=== PATIENT | female | born 1955 | race Caucasian/White ===

== ENCOUNTER 2017-11-19 13:10 | Outpatient (CLI) | payer OTHER ==
--- NOTE | 2017-11-20 10:50 | DEXA Report ---
DEXA SCAN: 11/19/2017 CLINICAL INDICATION: Osteoporosis. TECHNIQUE: Dual energy x-ray absorptiometry (DXA) was performed on a [email or web address] system. Regions measured are the AP spine, femoral neck, and, if needed, forearm. COMPARISON: 06/09/2016. In accordance with the International Society for Clinical Densitometry (ISCD) guidelines, data from previous exams may be reanalyzed using current recommendations and techniques. This is done to allow a more accurate basis for comparison with the current study. FINDINGS Data for the lumbar spine is as follows: REGION BMD (g/cm/cm) T-SCORE Z-SCORE L1 0.922 -1.7 -0.6 L2 0.840 -3.0 -1.8 L3 1.067 -1.1 0.0 L4 1.121 -0.7 0.5 L1-L4 1.001 -1.5 -0.3 NOTE: All evaluable vertebrae are used for classification. Data for the hip is as follows: REGION BMD (g/cm/cm) T-SCORE Z-SCORE Neck 0.730 -2.2 -1.0 TOTAL 0.708 -2.4 -1.5 NOTE: The femoral neck or total proximal femur, whichever is lowest, is used for classification. DEXA RESULTS SUMMARY: Spine SCAN DATE AGE BMD T-SCORE BMD CHANGE VS BASELINE BMD CHANGE VS PREVIOUS 11/19/2017 62.1 1.001 -- 0.041* 4.2* 06/09/2016 60.6 0.981 -- -- -- * Denotes significant change at the 95% confidence level. Denotes dissimilar scan types or analysis methods. DEXA RESULTS SUMMARY: Total hip SCAN DATE AGE BMD T-SCORE BMD CHANGE VS BASELINE BMD CHANGE VS PREVIOUS 11/19/2017 62.1 0.708 -- 0.059* 9.1* 06/09/2016 60.6 0.49 -- -- -- * Denotes significant change at the 95% confidence level. Denotes dissimilar scan types or analysis methods. IMPRESSION 1. WHO CLASSIFICATION BASED ON THE INTERNATIONAL REFERENCE STANDARD IS OSTEOPENIA. FRACTURE RISK IS INCREASED. 2. THERE HAS BEEN STATISTICALLY SIGNIFICANT INTERVAL INCREASE IN BONE MINERAL DENSITY OF THE LEFT HIP AND LUMBAR SPINE FROM 06/09/2016. RECOMMENDATION: Patients with diagnosis of osteoporosis or osteopenia should have regular bone mineral density assessment. For those eligible for Medicare, routine testing is allowed once every 2 years. Testing frequency can be increased for patients who have rapidly progressing disease or for those who are receiving medical therapy to restore bone mass. COMMENT World Health Organization (WHO) definitions for osteoporosis and osteopenia: NORMAL BMD: T-score at 1.0 or higher, fracture risk is low. OSTEOPENIA BMD: T-score between 1.0 and -2.5, fracture risk is increased. OSTEOPOROSIS BMD: T-score at 2.5 or lower, fracture risk high. National Osteoporosis Foundation recommends: 1. Obtain adequate dietary calcium (at least 1200 mg per day) and vitamin D ( 400-800 international units per day). 2. Participate, as appropriate, in regular weightbearing and muscle- strengthening exercise. 3. Avoid tobacco use and reduce alcohol and caffeine intake. 4. For more detailed information see the website at www.NOF.org. TD: 11/19/2017 18:52 DIONTE
== END 2017-11-19 13:11 | disposition home or self-care (01) ==
LOC: DI 13:10
PROVIDERS: ATTEND Internal Medicine
DX: M85.88 Other specified disorders of bone density and structure, other site (principal)
CPT/HCPCS: 77080

== ENCOUNTER 2019-08-24 06:10 | Outpatient (CLI) | payer OTHER | END 2019-08-24 06:11 | disposition critical access hospital (66) | LOC: EMS 06:10 | PROVIDERS: ATTEND Surgery | DX: S89.91XA Unspecified injury of right lower leg, initial encounter (principal); W11.XXXA Fall on and from ladder, initial encounter; Y92.009 Unspecified place in unspecified non-institutional (private) residence as the place of occurrence of the external cause | CPT/HCPCS: A0425; A0427 ==

== ENCOUNTER 2019-08-24 06:26 | Emergency (ER) | payer OTHER ==
--- NOTE | 2019-08-24 06:31 | ED Physician Documentation ---
History of Present Illness - Stated complaint Stated Complaint: FALL - Chief complaint Chief Complaint: Trauma Ext - History obtained from History obtained from: Patient (Patient is a very pleasant 63-year-old female who was standing on a ladder on the third step when she slipped and fell and landed on her right knee she reports she is unable to bear weight is complaining of severe right knee pain. She denies any history of surgery to your right lower has been anticoagulated she denies hitting her head or neck. She denies any loss of consciousness.), EMS Review of Systems Constitutional: reports: Reviewed and negative Eyes: reports: Reviewed and negative Ears: reports: Reviewed and negative Nose: reports: Reviewed and negative Throat: reports: Reviewed and negative Cardiac: reports: Reviewed and negative Respiratory: reports: Reviewed and negative GI: reports: Reviewed and negative : reports: Reviewed and negative Skin: reports: Reviewed and negative Musculoskeletal: reports: Extremity pain, Extremity swelling, Joint swelling Neurologic: reports: Reviewed and negative Psychiatric: reports: Reviewed and negative Endocrine: reports: Reviewed and negative Immunocompromised: reports: Reviewed and negative PD PAST MEDICAL HISTORY - Present Medications Home Medications: Ambulatory Orders Medication Instructions Recorded Confirmed Dextroamphetamine/Amphetamine 30 mg PO DAILY 06/07/15 06/07/15 [Adderall 30 mg Tablet] Esomeprazole Magnesium [Nexium] 40 mg PO BID 06/07/15 06/07/15 Levothyroxine Sodium [Synthroid] 137 mcg PO DAILY 06/07/15 06/07/15 Oxybutynin [Ditropan] 20 mg PO TID 06/07/15 06/07/15 Piroxicam 20 mg PO DAILY 06/07/15 06/07/15 Simvastatin [Zocor] 40 mg PO DAILY 06/07/15 06/07/15 Trazodone HCl 125 mg PO DAILY 06/07/15 06/07/15 - Allergies Allergies/Adverse Reactions: Allergies Allergy/AdvReac Type Severity Reaction Status Date / Time No Known Drug Allergies Allergy Verified 06/04/15 13:36 PD ED PE NORMAL - Vitals Vital signs reviewed: Yes - General General: Alert and oriented X 3, No acute distress - HEENT HEENT: PERRL - Neck Neck: Supple, no meningeal sign - Cardiac Cardiac: RRR, No murmur - Respiratory Respiratory: Clear bilaterally - Abdomen Abdomen: Normal bowel sounds, Soft, Non tender, Non distended - Derm Derm: Warm and dry - Extremities Extremities: Other (There is tenderness and swelling over the right knee diffusely. There is no gross deformity her compartments are soft she is neurovascularly intact she has decreased range of motion on passive and active range of motion about the right knee joint cap refills less than 2 seconds skin is warm she is able to move all of her toes and she has palpable DP and PT pulses and a palpable popliteal pulse.) - Neuro Neuro: Alert and oriented X 3 - Psych Psych: Normal mood, Normal affect Results - Vitals Vitals: Vital Signs - 24 hr 08/24/19 06:31 Temperature 37.2 C Heart Rate 75 Respiratory 18 Rate Blood Pressure 154/83 H O2 Saturation 100 Oxygen O2 Source Room air PD MEDICAL DECISION MAKING - ED course Complexity details: other (Patient will be signed out at shift change to Dr. DE LA TORRE. Will accept and assume responsibility of care and disposition of this patient.) Departure - Departure Clinical Impression: Knee injury Qualifiers: Encounter type: initial encounter Laterality: right Qualified Code(s): S89.91XA - Unspecified injury of right lower leg, initial encounter
[2019-08-24] MEDS ORDERED: SODIUM CHLORIDE 0.9% 1,000 ML IV ONE (06:33)
[2019-08-24] MEDS ORDERED: MORPHINE 2 MG/ML CARPUJECT IVP STA ×3 (06:33→13:12)
[2019-08-24 07:08] LABS: BASOPHILS # (AUTO) 0.1 10^3/uL (0.0-0.1); BASOPHILS % (AUTO) 0.4 %; EOSINOPHILS % (AUTO) 0.3 %; LYMPHOCYTES # (AUTO) 1.1 10^3/uL (1.5-3.5); LYMPHOCYTES % (AUTO) 9.2 %; MEAN CORPUSCULAR HEMOGLOBIN 31.5 pg (27.0-31.0); MEAN CORPUSCULAR HGB CONC 34.3 g/dL (32.0-36.0); MEAN CORPUSCULAR VOLUME 91.9 fL (81.0-99.0); MEAN PLATELET VOLUME 9.3 fL (7.9-10.8); MONOCYTES # (AUTO) 0.8 10^3/uL (0.0-1.0); MONOCYTES % (AUTO) 6.7 %; PLT - PLATELET COUNT 238 10^3/uL (130-450); RED BLOOD COUNT 3.81 10^6/uL (4.20-5.40); RED CELL DISTRIBUTION WIDTH 12.2 % (12.0-15.0)
[2019-08-24 07:14] LABS: INR 1.1 (0.8-1.2); PT - PROTHROMBIN TIME 12.5 secs (9.9-12.6)
[2019-08-24 07:21] LABS: CALCIUM 9.4 mg/dL (8.5-10.3); CREATININE 0.8 mg/dL (0.4-1.0); PARTIAL THROMBOPLASTIN TIME 38.9 secs (24.9-33.3)
--- NOTE | 2019-08-24 07:47 | XRAY Report ---
Reason: KNEE PAIN Procedure Date: 08/24/2019 Accession Number: [id number] / [id number] Procedure: XR - Knee 3 View RT CPT Code: Final Report FULL RESULT: EXAM: RIGHT KNEE RADIOGRAPHY EXAM DATE: 08/24/2019 07:05 AM. CLINICAL HISTORY: KNEE PAIN. COMPARISON: None. TECHNIQUE: 4 views. FINDINGS: Bones: There is comminuted fracture of the proximal tibia at the metaphysis with intra-articular extension, depression of the lateral tibial plateau and posterior displacement by approximately 6 mm along the metaphysis. Fracture lucency is seen extending inferiorly into the tibial diaphysis, possibly continuing beyond field of view. There is also possible fracture of the tibial spine. Sclerosis along the proximal fibular metaphysis which could reflect additional nondisplaced fracture. Joints: Large effusion with fat fluid level compatible with lipohemarthrosis. No subluxations. Soft Tissues: Soft tissue swelling about the knee. IMPRESSION: 1. Comminuted fractures of the proximal tibia with intra-articular extension, detailed above. Fracture line may descend into be a beyond field of view. 2. Associated large lipohemarthrosis. 3. Possible nondisplaced fracture of proximal fibular metaphysis. RADIA
--- NOTE | 2019-08-24 09:22 | CT Report ---
Reason: fracture Procedure Date: 08/24/2019 Accession Number: [id number] / [id number] Procedure: CT - LOWER EXTREMITY WO - RT CPT Code: Final Report FULL RESULT: EXAM: RIGHT KNEE CT WITHOUT CONTRAST EXAM DATE: 08/24/2019 07:30 AM. CLINICAL HISTORY: Fracture. COMPARISON: KNEE 3 VIEW RT 08/24/2019 6:36 AM. TECHNIQUE: Thin-section axial images were acquired of the knee without contrast. Post-processing: Coronal and sagittal reformats. Other: None. In accordance with CT protocol optimization, one or more of the following dose reduction techniques were utilized for this exam: automated exposure control, adjustment of mA and/or KV based on patient size, or use of iterative reconstructive technique. FINDINGS: Bones: Complex comminuted proximal tibia fracture (Schatzker ) with mildly displaced/overriding transverse component through the metaphysis and oblique fracture planes extending at least 10 cm into the proximal tibial metaphysis. There is a comminuted fracture at the lateral tibial plateau with approximately 9 mm joint depression. There is a displaced split type fracture involving the medial tibial plateau. There is extension to the intercondylar eminence. There is additional mildly displaced comminuted fracture of the fibular head. Bones appear osteopenic. Joints: Mild to moderate medial and lateral and patellofemoral compartment DJD. There is a large joint effusion with [id number] level consistent with lipohemarthrosis. Mild medial subluxation of the distal femur relative to the tibial plateau. Musculature: Normal. No fatty atrophy. Other: IMPRESSION: 1. Complex comminuted tibial plateau fracture, Schatzker . 2. Comminuted fibular head fracture. 3. Large knee joint lipohemarthrosis. 4. DJD. Bones appear osteopenic. RADIA
--- NOTE | 2019-08-24 11:03 | MISCELLANEOUS PROVIDER NOTE ---
Miscellaneous Provider Note - - Note: Received phone call from Ken Santos MD from the Emergency Medicine department. He inquired about patient Shasta Reyes. He noted that she fell from a ladder injuring her right knee. He noted that she is relatively comfortable at rest though had pain with movement. He denies any neurovascular concerns or signs of compartment syndrome in the calf. We discussed patient's images and given the severity of the injury which appears to be a Schatzker tibial plateau fracture I have recommended immediate transfer to higher level of care. While we did discuss her current examination which did not show concerning signs of compartment syndrome or vascular compromise we did discuss the potential that these conditions could arise. With that in mind, coupled with the complexity of the fracture which would ultimately be best treated at a trauma center, I have recommended immediate transfer to this higher level of care.
--- NOTE | 2019-08-24 12:19 | ED Physician Documentation ---
PD HPI LOWER EXT INJURY - Stated complaint Stated Complaint: FALL - Chief complaint Chief Complaint: Trauma Ext - History obtained from History obtained from: Patient - History of Present Illness PD HPI LOW EXT INJURY LOCATION: Right, Knee Type of injury: Twist Where injury occurred: Home Timing - onset: Today Timing - duration: Hours Timing - details: Abrupt onset, Still present Improved by: Rest, Immobilization Worsened by: Moving, Palpating Associated symptoms: Swelling Similar symptoms before: Has not had sx before Recently seen: Not recently seen PD PAST MEDICAL HISTORY - Present Medications Home Medications: Ambulatory Orders Medication Instructions Recorded Confirmed Dextroamphetamine/Amphetamine 30 mg PO DAILY 06/07/15 06/07/15 [Adderall 30 mg Tablet] Esomeprazole Magnesium [Nexium] 40 mg PO BID 06/07/15 06/07/15 Levothyroxine Sodium [Synthroid] 137 mcg PO DAILY 06/07/15 06/07/15 Oxybutynin [Ditropan] 20 mg PO TID 06/07/15 06/07/15 Piroxicam 20 mg PO DAILY 06/07/15 06/07/15 Simvastatin [Zocor] 40 mg PO DAILY 06/07/15 06/07/15 Trazodone HCl 125 mg PO DAILY 06/07/15 06/07/15 - Allergies Allergies/Adverse Reactions: Allergies Allergy/AdvReac Type Severity Reaction Status Date / Time No Known Drug Allergies Allergy Verified 06/04/15 13:36 Results - Vitals Vitals: Vital Signs - 24 hr 08/24/19 08/24/19 08/24/19 06:31 07:36 08:28 Temperature 37.2 C Heart Rate 75 70 71 Respiratory 18 14 15 Rate Blood Pressure 154/83 H 141/74 H 152/82 H O2 Saturation 100 98 98 08/24/19 08/24/19 08/24/19 09:05 09:39 10:04 Temperature Heart Rate 71 69 70 Respiratory 14 14 18 Rate Blood Pressure 131/76 H 133/71 H 130/74 O2 Saturation 97 98 99 08/24/19 08/24/19 12:00 13:13 Temperature Heart Rate 79 72 Respiratory 18 18 Rate Blood Pressure 121/84 H 131/67 H O2 Saturation 97 93 Oxygen O2 Source Room air - Labs Labs: Laboratory Tests 08/24/19 08/24/19 08/24/19 07:02 07:02 07:02 WBC 12.0 H RBC 3.81 L Hgb 12.0 Hct 35.0 L MCV 91.9 MCH 31.5 H MCHC 34.3 RDW 12.2 Plt Count 238 MPV 9.3 Neut # (Auto) 10.0 H Lymph # (Auto) 1.1 L [place] # (Auto) 0.8 Eos # (Auto) 0.0 Baso # (Auto) 0.1 Absolute Nucleated RBC 0.00 Nucleated RBC % 0.0 PT 12.5 INR 1.1 APTT 38.9 H Sodium 131 L Potassium 4.0 Chloride 95 L Carbon Dioxide 26 Anion Gap 10.0 BUN 17 Creatinine 0.8 Estimated GFR (MDRD) 72 L Glucose 117 H Calcium 9.4 - Rads (name of study) righ knee Radiology: Prelim report reviewed (Impression: 1. Comminuted fractures of the proximal tibia and intra-articular extension, detailed above. Fracture line may descend into be off [id number]. 2 Associated large lipohemarthrosis. 3 History of possible nondisplaced fracture of proximal fibular metaphysis), EMP read indepedently, See rad report right knee CT Radiology: Prelim report reviewed (Impression: 1. Comminuted tibial plateau fracture, Schatzker . 2. Comminuted fibular head fracture. 3 Large knee joint lipohemarthrosis. 4 DJD. Bones appear osteopenic.), EMP read indepedently, See rad report PD MEDICAL DECISION MAKING - ED course Complexity details: reviewed results, re-evaluated patient, considered differential, d/w patient ED course: 63-year-old female a fall off a ladder has a comminuted complex right tibial nathan teau fracture. She has swelling to the knee and pain with any movement of the leg. Her case is reviewed with our orthopedic surgeon here Dr. Morris Jackson and he recommends transfer the patient to a tertiary orthopedic center specifically [facility]. He is concerned about the potential for vascular injury and postoperative swelling or compartment syndrome with the type Schazkter fracture of the tibial plateau. Dr. Geovanni Mittal the emergency department physician at [facility] accepts the patient in transfer for definitive orthopedic care. The patient requires pain medication here in the emergency department and appears to respond well to 4 mg of morphine. She does have some trouble concentrating but she is able eventually to assist the social media marketing manager with arrangements for her birds and her dog at her home. Departure - Departure Disposition: 02 Transfer Acute Care Hosp Clinical Impression: Knee injury Qualifiers: Encounter type: initial encounter Laterality: right Qualified Code(s): S89.91XA - Unspecified injury of right lower leg, initial encounter Tibial plateau fracture, right Qualifiers: Encounter type: initial encounter Fracture type: closed Qualified Code(s): S82.141A - Displaced bicondylar fracture of right tibia, initial encounter for closed fracture Condition: Stable Discharge Date/Time: 08/24/19 13:22
[2019-08-24] MEDS ORDERED: MORPHINE 2 MG/ML CARPUJECT ONE (13:06)
[2019-08-24 13:14] VITALS: BP 131/67
== END 2019-08-24 13:22 | disposition short-term general hospital (02) ==
LOC: EDUNIT# → ED 06:26
DX: S82.141A Displaced bicondylar fracture of right tibia, initial encounter for closed fracture (principal); S82.831A Other fracture of upper and lower end of right fibula, initial encounter for closed fracture; W11.XXXA Fall on and from ladder, initial encounter; Y92.009 Unspecified place in unspecified non-institutional (private) residence as the place of occurrence of the external cause; M17.11 Unilateral primary osteoarthritis, right knee
CPT/HCPCS: 36415; 80048; 85025; 85610; 85730; 96374; 96376; 99284

== ENCOUNTER 2019-08-24 13:24 | Outpatient (CLI) | payer OTHER | END 2019-08-24 13:25 | disposition short-term general hospital (02) | LOC: EMS 13:24 | PROVIDERS: ATTEND Surgery | DX: S82.141G Displaced bicondylar fracture of right tibia, subsequent encounter for closed fracture with delayed healing (principal); W17.89XA Other fall from one level to another, initial encounter | CPT/HCPCS: A0425; A0428 ==

== ENCOUNTER 2019-11-24 17:31 | Outpatient (CLI) | payer OTHER ==
--- NOTE | 2019-11-25 02:02 | XRAY Report ---
Reason: closed fx Rt tib plateau w/ routine healing Procedure Date: 11/24/2019 Accession Number: [id number] / [id number] Procedure: XR - Knee 2 View RT CPT Code: Final Report FULL RESULT: EXAM: RIGHT KNEE RADIOGRAPHY EXAM DATE: 11/24/2019 06:20 PM. CLINICAL HISTORY: Closed fx Rt tib plateau w/ routine healing. COMPARISON: KNEE 3 VIEW RT 08/24/2019 6:36 AM. TECHNIQUE: 3 views. FINDINGS: The complex comminuted tibial plateau fracture has been internally fixated by lateral plate and multiple screws since the prior exam and is in near anatomic alignment. Mild callus formation is seen consistent with healing. The comminuted fibular head fracture is in near-anatomic alignment. The bones are osteopenic. A small joint effusion persists. There is mild soft tissue swelling. IMPRESSION: Healing internally fixated comminuted complex right tibial plateau fracture in near-anatomic alignment. Fibular head fracture in near anatomic alignment. RADIA
== END 2019-11-24 17:32 | disposition home or self-care (01) ==
LOC: DI 17:31
PROVIDERS: ATTEND Physician Assistant
DX: S82.141D Displaced bicondylar fracture of right tibia, subsequent encounter for closed fracture with routine healing (principal)

== ENCOUNTER 2022-01-14 14:13 | Emergency (ER) | payer MEDICARE, OTHER ==
[2022-01-14] MEDS ORDERED: CHERRY SYRUP 10 ML UDC PO ONE (14:40)
[2022-01-14] MEDS ORDERED: DEXAMETHASONE 10 MG/ML VIAL PO STA (14:40)
[2022-01-14] MEDS ORDERED: KETOROLAC 60 MG/2 ML VIAL IM STA (14:41)
--- NOTE | 2022-01-14 14:42 | ED Physician Documentation ---
PD HPI LOWER EXT INJURY - Stated complaint Stated Complaint: R HIP PAIN - Chief complaint Chief Complaint: Ext Problem - History obtained from History obtained from: Patient - History of Present Illness PD HPI LOW EXT INJURY LOCATION: Right, Hip Type of injury: Other (over use) Where injury occurred: Home Timing - onset: How many weeks ago (1) Timing - duration: Weeks (1) Timing - details: Gradual onset, Still present Improved by: Rest, Immobilization Worsened by: Moving, Palpating Associated symptoms: No: Weakness, Numbness, Tingling, Swelling, Discolored Contributing factors: No: Anticoagulated Similar symptoms before: Has not had sx before Recently seen: Not recently seen - Additional information Additional information: 66-year-old female has developed pain in the right buttocks area radiating down the back of her leg. She states that she does a lot of bending over picking up rocks and she was in her garage doing a lot of work prior to the onset of her symptoms. She has had symptoms for about 1 week. These are not improving and she is not been able to sleep. Review of Systems Constitutional: denies: Fever Ears: denies: Ear pain Nose: denies: Congestion Throat: denies: Sore throat Cardiac: denies: Chest pain / pressure Respiratory: denies: Dyspnea, Cough GI: denies: Abdominal Pain, Nausea, Vomiting, Constipation, Diarrhea : denies: Dysuria, Frequency Skin: denies: Rash Musculoskeletal: reports: Back pain, Extremity pain. denies: Neck pain Neurologic: denies: Generalized weakness, Focal weakness, Numbness PD PAST MEDICAL HISTORY - Present Medications Home Medications: Ambulatory Orders Medication Instructions Recorded Confirmed Dextroamphetamine/Amphetamine 30 mg PO DAILY 06/07/15 06/07/15 [Adderall 30 mg Tablet] Esomeprazole Magnesium [Nexium] 40 mg PO BID 06/07/15 06/07/15 Levothyroxine Sodium [Synthroid] 137 mcg PO DAILY 06/07/15 06/07/15 Oxybutynin [Ditropan] 20 mg PO TID 06/07/15 06/07/15 Piroxicam 20 mg PO DAILY 06/07/15 06/07/15 Simvastatin [Zocor] 40 mg PO DAILY 06/07/15 06/07/15 Trazodone HCl 125 mg PO DAILY 06/07/15 06/07/15 Cyclobenzaprine [Flexeril] 10 mg PO TID PRN #20 tablet 01/14/22 HYDROcod/ACETAM 5/325 [[place] 5/325] 1 - 2 tablet PO Q6H PRN #14 tablet 01/14/22 - Allergies Allergies/Adverse Reactions: Allergies Allergy/AdvReac Type Severity Reaction Status Date / Time No Known Drug Allergies Allergy Verified 01/14/22 14:29 PD ED PE NORMAL - Vitals Vital signs reviewed: Yes (Hypertensive) - General General: Alert and oriented X 3, No acute distress, Well developed/nourished - HEENT HEENT: Atraumatic, PERRL, EOMI - Respiratory Respiratory: No respiratory distress - Back Back: No CVA TTP, No spinal TTP, Other (Point tenderness to the sciatic notch on the right side and to the right buttocks. No pain over the trochanter and no pain with flexion extension of internal and external rotation of the left hip) - Derm Derm: Normal color, Warm and dry, No rash - Extremities Extremities: No deformity, No edema - Neuro Neuro: Alert and oriented X 3, features reporter 2-12 intact, No motor deficit, No sensory deficit, Normal speech Eye Opening: Spontaneous Motor: Obeys Commands Verbal: Oriented GCS Score: 15 - Psych Psych: Normal mood, Normal affect Results - Vitals Vitals: Vital Signs - 24 hr 01/14/22 01/14/22 14:26 16:02 Temperature 37.6 C Heart Rate 89 84 Respiratory 16 16 Rate Blood Pressure 118/95 H 140/92 H O2 Saturation 100 97 Oxygen O2 Source Room air PD MEDICAL DECISION MAKING - ED course Complexity details: re-evaluated patient, considered differential, d/w patient ED course: 66-year-old female with what appears to be sciatica on the right side is administered dexamethasone and Toradol with some improvement in her pain we will place on some pain medication a muscle relaxant. Departure - Departure Disposition: 01 Home, Self Care Clinical Impression: Sciatica Qualifiers: Laterality: right Qualified Code(s): M54.31 - Sciatica, right side Condition: Stable Instructions: ED Sciatica Follow-Up: STIVEN SALTER MD [Primary Care Provider] - Prescriptions: Cyclobenzaprine [Flexeril] 10 mg PO TID PRN #20 tablet PRN Reason: Spasms HYDROcod/ACETAM 5/325 [[place] 5/325] 1 - 2 tablet PO Q6H PRN #14 tablet PRN Reason: Pain Comments: Shasta, today it looks like you have acute sciatica or pinched nerve in your back that frequently leads to pain in your leg. We have given you some dexamethasone and this is usually an effective medicine for sciatica and takes hours for to be effective. We have given you some Toradol and this may be effective now and aid in some pain relief. Usually pain from sciatica will last 2 to 5 days. Sometimes there is not relief with this and further work-up and procedures are indicated. Follow-up with your primary care doctor.We have E scribed pain medication a muscle relaxant to the [place] in [place] Discharge Date/Time: 01/14/22 16:03
--- NOTE | 2022-01-14 15:47 | XRAY Report ---
PROCEDURE: Hip w/Pelvis 2-3V RT INDICATIONS: pain to hip "area" TECHNIQUE: AP pelvis with lateral view(s) of the right hip(s). COMPARISON: None. FINDINGS: Bones: No fractures or dislocations. Pelvic ring appears intact. No suspicious bony lesions. Gene ralized decreased osseous mineralization present. Degenerative changes noted lower lumbar spine Soft tissues: The visualized bowel gas pattern is normal. No suspicious soft tissue calcifications. Moderate to fecal debris in the rectum IMPRESSION: Osteopenia without fracture Reviewed by: Ramo Calle MD on 01/14/2022 2:45 PM AKDT Approved by: Ramo Calle MD on 01/14/2022 2:45 PM AKDT Station ID: [id number]
[2022-01-14 16:04] VITALS: BP 140/92
== END 2022-01-14 16:03 | disposition home or self-care (01) ==
LOC: ED 14:13
DX: M54.31 Sciatica, right side (principal)
CPT/HCPCS: 73502; 96372; 99282; 99283; A9270

== ENCOUNTER 2022-03-25 20:43 | Outpatient (CLI) | payer MEDICARE, OTHER | END 2022-03-25 20:44 | disposition EMS.NT | LOC: EMS 20:43 | DX: R42 Dizziness and giddiness (principal); R51.9 Headache, unspecified; R07.89 Other chest pain; R06.02 Shortness of breath ==

== ENCOUNTER 2022-07-20 14:51 | Outpatient (CLI) | payer MEDICARE, OTHER ==
--- NOTE | 2022-07-20 17:08 | DEXA Report ---
PROCEDURE: Dexa Spine and/or Hip INDICATIONS: OSTEOPOROSIS TECHNIQUE: Dual energy x-ray absorptiometry (DXA) was performed on a [employer] System. Regions measur ed are the AP Spine, femoral neck, and if needed forearm. COMPARISON: 11/19/2017. FINDINGS: Lumbar Spine: Bone Mineral Density 1.044 g/cm/cm,T score -1.1. There is interval 4.3% increase in total lumbar s pine bone mineral density. Left Femoral Neck: Bone Mineral Density 0.706 g/cm/cm, T score -2.4. Left Hip: Bone Mineral Density 0.642 g/cm/cm,T score -2.9. There is interval 9.3% decrease in left total hip b one mineral density. (T score greater or equal to -1.0: NORMAL) (T score from -1.1 to -2.4: OSTEOPENIA) (T score less than or equal to -2.5 to: OSTEOPOROSIS) Impression: Osteoporosis. Patients with diagnosis of osteoporosis or osteopenia should have regular bone mineral density assess ment. For those eligible for Medicare, routine testing is allowed once every 2 years. Testing frequ ency can be increased for patients who have rapidly progressing disease or for those who are receivin g medical therapy to restore bone mass. Reviewed by: Jun Walden MD on 07/20/2022 5:06 PM PST Approved by: Jun Walden MD on 07/20/2022 5:06 PM PST Station ID: [id number]
== END 2022-07-20 14:52 | disposition home or self-care (01) ==
LOC: DI 14:51
PROVIDERS: ATTEND Orthopaedic Surgery
DX: M81.0 Age-related osteoporosis without current pathological fracture (principal)